=== PATIENT | male | born 1970 | race African-American/Black ===

== ENCOUNTER 2020-09-25 16:32 | Inpatient (IN) | payer OTHER ==
[2020-09-25 17:50] VITALS: BMI 28.0
[2020-09-25] MEDS ORDERED: MAGNESIUM HYDROX 2400MG/30ML ORAL SUSPENSION 30 ML CUP PO PRN (19:09)
[2020-09-25] MEDS ORDERED: ACETAMINOPHEN 325 MG TABLET (FP) PO PRN (19:09)
[2020-09-25] MEDS ORDERED: P-EPHED 60MG/TRIPROLIDI 2.5MG TABLET PO PRN (19:09)
[2020-09-25] MEDS ORDERED: guaiFENesin 200 MG/10 ML 10 ML UNIT-DOSE CUPS PO PRN (19:09)
[2020-09-25] MEDS ORDERED: MAG HYDROX/AL HYDROX/SIMETH 30 ML UNIT-DOSE CUP PO PRN (19:09)
[2020-09-25] MEDS ORDERED: MAGNESIUM CITRATE 300 ML BOTTLE PO PRN (19:09)
[2020-09-25] MEDS ORDERED: LOPERAMIDE HCL 2 MG CAPSULE PO PRN (19:09)
[2020-09-25] MEDS ORDERED: AMMONIUM LACTATE 12% LOTION 225 GM BOTTLE TP PRN (19:13)
[2020-09-25] MEDS: THIAMINE HCL 100 MG TABLET (FP) PO SCH (21:21)
[2020-09-25] MEDS: MELATONIN 5 MG TABLETS PO SCH (21:21)
[2020-09-25] MEDS: NIFEdipine E.R. 90 MG TABLET PO SCH (23:02)
[2020-09-25] MEDS: ISOSORBIDE MONONITRATE 60 MG TAB.SR.24H (FP) PO SCH (23:02)
[2020-09-25] MEDS ORDERED: PT OWN MED DRAWER 7, Y5N ONE (23:41)
[2020-09-26] MEDS: ISOSORBIDE MONONITRATE 60 MG TAB.SR.24H (FP) PO SCH (09:49)
[2020-09-26] MEDS: NIFEdipine E.R. 90 MG TABLET PO SCH (09:49)
[2020-09-26] MEDS: PRENATAL VITAMINS W/ FOLIC ACID TABLET (FP) PO SCH (09:49)
[2020-09-26 11:09] LABS: CALCIUM 8.9 mg/dL (8.5-10.1)
[2020-09-26 11:10] LABS: ALBUMIN 3.4 g/dl (3.4-5.0); BLOOD UREA NITROGEN 31.3 mg/dL (7-18)
[2020-09-26 11:11] LABS: BILIRUBIN,TOTAL 0.2 mg/dL (0.2-1); TOT PROT 6.9 g/dl (6.4-8.2)
[2020-09-26 11:12] LABS: CREATININE 2.2 mg/dL (0.55-1.3)
[2020-09-26 12:00] LABS: HEMOGLOBIN 12.5 GM/dL (11.7-16.9)
[2020-09-26 12:03] LABS: HEMATOCRIT 37.2 % (35.4-49); MCH 31.2 pg (25.7-33.7); MCHC 33.8 g/dl (32.0-35.9); MEAN CELL VOLUME 92.5 fl (80-96); MEAN PLT VOLUME 8.4 fl (7.5-11.1); PLATELET COUNT 264 K/MM3 (134-434); RBC 4.02 M/mm3 (4.00-5.60); RDW 15.1 % (11.9-15.9)
[2020-09-26] MEDS: hydrALAZINE HCL 50 MG TABLET (FP) PO SCH ×2 (14:45→21:36)
[2020-09-26] MEDS ORDERED: PT OWN MED DRAWER 7, Y5N ONE (19:26)
[2020-09-26] MEDS: MELATONIN 5 MG TABLETS PO SCH (21:36)
[2020-09-26] MEDS: THIAMINE HCL 100 MG TABLET (FP) PO SCH (21:36)
[2020-09-27] MEDS: hydrALAZINE HCL 50 MG TABLET (FP) PO SCH ×3 (06:12→22:06)
[2020-09-27] MEDS ORDERED: PT OWN MED DRAWER 7, Y5N ONE ×2 (09:02→20:35)
[2020-09-27] MEDS: ISOSORBIDE MONONITRATE 60 MG TAB.SR.24H (FP) PO SCH (09:53)
[2020-09-27] MEDS: NIFEdipine E.R. 90 MG TABLET PO SCH (09:53)
[2020-09-27] MEDS: PRENATAL VITAMINS W/ FOLIC ACID TABLET (FP) PO SCH (09:53)
[2020-09-27 10:11] LABS: PH,URINE 5.5 (5.0-8.0); URINE APPEARANCE CLEAR; URINE BILIRUBIN NEGATIVE (NEGATIVE); URINE COLOR YELLOW; URINE GLUCOSE (UA) NEGATIVE (NEGATIVE); URINE KETONE NEGATIVE (NEGATIVE); URINE LEUK ESTERASE NEGATIVE (NEGATIVE); URINE NITRITE NEGATIVE (NEGATIVE); URINE PROTEIN NEGATIVE (NEGATIVE); URINE UROBILINOGEN 0.2 mg/dL (0.2-1.0)
[2020-09-27] MEDS: MELATONIN 5 MG TABLETS PO SCH (22:06)
[2020-09-27] MEDS: THIAMINE HCL 100 MG TABLET (FP) PO SCH (22:06)
[2020-09-28] MEDS: hydrALAZINE HCL 50 MG TABLET (FP) PO SCH ×3 (07:29→21:17)
[2020-09-28] MEDS: cloNIDine-TTS 0.2 MG/24 HOURS PATCH.TDWK TD SCH (07:30)
[2020-09-28] MEDS ORDERED: PT OWN MED DRAWER 7, Y5N ONE (08:59)
[2020-09-28] MEDS: PRENATAL VITAMINS W/ FOLIC ACID TABLET (FP) PO SCH (10:06)
[2020-09-28] MEDS: NIFEdipine E.R. 90 MG TABLET PO SCH (10:06)
[2020-09-28] MEDS: ISOSORBIDE MONONITRATE 60 MG TAB.SR.24H (FP) PO SCH (10:06)
[2020-09-28] MEDS: MELATONIN 5 MG TABLETS PO SCH (21:17)
[2020-09-28] MEDS: THIAMINE HCL 100 MG TABLET (FP) PO SCH (21:17)
[2020-09-29] MEDS ORDERED: PT OWN MED DRAWER 7, Y5N ONE ×3 (05:40→21:23)
[2020-09-29 06:06] LABS: SARS-CoV-2 NAA Not Detected (Not Detected)
[2020-09-29] MEDS: hydrALAZINE HCL 50 MG TABLET (FP) PO SCH ×3 (06:12→21:21)
[2020-09-29] MEDS: PRENATAL VITAMINS W/ FOLIC ACID TABLET (FP) PO SCH (09:54)
[2020-09-29] MEDS: ISOSORBIDE MONONITRATE 60 MG TAB.SR.24H (FP) PO SCH (09:55)
[2020-09-29] MEDS: NIFEdipine E.R. 90 MG TABLET PO SCH (09:55)
[2020-09-29] MEDS: MELATONIN 5 MG TABLETS PO SCH (21:21)
[2020-09-29] MEDS: THIAMINE HCL 100 MG TABLET (FP) PO SCH (21:21)
[2020-09-30] MEDS: hydrALAZINE HCL 50 MG TABLET (FP) PO SCH ×3 (06:14→21:11)
[2020-09-30] MEDS ORDERED: PT OWN MED DRAWER 7, Y5N ONE ×3 (08:57→20:39)
[2020-09-30] MEDS: PRENATAL VITAMINS W/ FOLIC ACID TABLET (FP) PO SCH (09:53)
[2020-09-30] MEDS: ISOSORBIDE MONONITRATE 60 MG TAB.SR.24H (FP) PO SCH (09:53)
[2020-09-30] MEDS: NIFEdipine E.R. 90 MG TABLET PO SCH (09:53)
[2020-09-30] MEDS: THIAMINE HCL 100 MG TABLET (FP) PO SCH (21:11)
[2020-09-30] MEDS: MELATONIN 5 MG TABLETS PO SCH (21:11)
[2020-10-01] MEDS: hydrALAZINE HCL 50 MG TABLET (FP) PO SCH ×3 (06:26→21:17)
[2020-10-01] MEDS ORDERED: PT OWN MED DRAWER 7, Y5N ONE ×3 (08:25→19:30)
[2020-10-01] MEDS: ISOSORBIDE MONONITRATE 60 MG TAB.SR.24H (FP) PO SCH (09:45)
[2020-10-01] MEDS: NIFEdipine E.R. 90 MG TABLET PO SCH (09:45)
[2020-10-01] MEDS: PRENATAL VITAMINS W/ FOLIC ACID TABLET (FP) PO SCH (09:46)
[2020-10-01 10:45] LABS: PH,URINE 5.5 (5.0-8.0); URINE APPEARANCE CLEAR; URINE BILIRUBIN NEGATIVE (NEGATIVE); URINE COLOR YELLOW; URINE GLUCOSE (UA) NEGATIVE (NEGATIVE); URINE KETONE NEGATIVE (NEGATIVE); URINE LEUK ESTERASE NEGATIVE (NEGATIVE); URINE NITRITE NEGATIVE (NEGATIVE); URINE PROTEIN NEGATIVE (NEGATIVE); URINE UROBILINOGEN 0.2 mg/dL (0.2-1.0)
[2020-10-01] MEDS: MELATONIN 5 MG TABLETS PO SCH (21:17)
[2020-10-01] MEDS: THIAMINE HCL 100 MG TABLET (FP) PO SCH (21:17)
[2020-10-02] MEDS: hydrALAZINE HCL 50 MG TABLET (FP) PO SCH ×3 (06:16→21:32)
[2020-10-02] MEDS ORDERED: PT OWN MED DRAWER 7, Y5N ONE (08:39)
[2020-10-02] MEDS: NIFEdipine E.R. 90 MG TABLET PO SCH (09:33)
[2020-10-02] MEDS: ISOSORBIDE MONONITRATE 60 MG TAB.SR.24H (FP) PO SCH (09:33)
[2020-10-02] MEDS: PRENATAL VITAMINS W/ FOLIC ACID TABLET (FP) PO SCH (09:33)
[2020-10-02] MEDS: THIAMINE HCL 100 MG TABLET (FP) PO SCH (21:32)
[2020-10-02] MEDS: MELATONIN 5 MG TABLETS PO SCH (21:32)
[2020-10-03] MEDS: hydrALAZINE HCL 50 MG TABLET (FP) PO SCH ×3 (06:21→21:14)
[2020-10-03] MEDS: NIFEdipine E.R. 90 MG TABLET PO SCH (09:44)
[2020-10-03] MEDS: ISOSORBIDE MONONITRATE 60 MG TAB.SR.24H (FP) PO SCH (09:44)
[2020-10-03] MEDS: PRENATAL VITAMINS W/ FOLIC ACID TABLET (FP) PO SCH (09:44)
[2020-10-03] MEDS: MELATONIN 5 MG TABLETS PO SCH (21:14)
[2020-10-03] MEDS: THIAMINE HCL 100 MG TABLET (FP) PO SCH (21:14)
[2020-10-04] MEDS: hydrALAZINE HCL 50 MG TABLET (FP) PO SCH ×3 (06:44→21:30)
[2020-10-04] MEDS: NIFEdipine E.R. 90 MG TABLET PO SCH (09:52)
[2020-10-04] MEDS: ISOSORBIDE MONONITRATE 60 MG TAB.SR.24H (FP) PO SCH (09:52)
[2020-10-04] MEDS: PRENATAL VITAMINS W/ FOLIC ACID TABLET (FP) PO SCH (09:52)
[2020-10-04] MEDS: MELATONIN 5 MG TABLETS PO SCH (21:30)
[2020-10-04] MEDS: THIAMINE HCL 100 MG TABLET (FP) PO SCH (21:30)
[2020-10-05] MEDS: hydrALAZINE HCL 50 MG TABLET (FP) PO SCH ×3 (06:39→21:17)
[2020-10-05] MEDS: cloNIDine-TTS 0.2 MG/24 HOURS PATCH.TDWK TD SCH (07:07)
[2020-10-05] MEDS: ISOSORBIDE MONONITRATE 60 MG TAB.SR.24H (FP) PO SCH (09:55)
[2020-10-05] MEDS: PRENATAL VITAMINS W/ FOLIC ACID TABLET (FP) PO SCH (09:55)
[2020-10-05] MEDS: NIFEdipine E.R. 90 MG TABLET PO SCH (09:56)
[2020-10-05] MEDS: MELATONIN 5 MG TABLETS PO SCH (21:16)
[2020-10-05] MEDS: THIAMINE HCL 100 MG TABLET (FP) PO SCH (21:16)
[2020-10-06] MEDS: hydrALAZINE HCL 50 MG TABLET (FP) PO SCH ×3 (06:41→21:38)
[2020-10-06] MEDS: PRENATAL VITAMINS W/ FOLIC ACID TABLET (FP) PO SCH (09:55)
[2020-10-06] MEDS: ISOSORBIDE MONONITRATE 60 MG TAB.SR.24H (FP) PO SCH (09:55)
[2020-10-06] MEDS: NIFEdipine E.R. 90 MG TABLET PO SCH (09:55)
[2020-10-06] MEDS: THIAMINE HCL 100 MG TABLET (FP) PO SCH (21:38)
[2020-10-06] MEDS: MELATONIN 5 MG TABLETS PO SCH (21:38)
[2020-10-07] MEDS: IBUPROFEN 400 MG TABLET (FP) PO PRN (06:24)
[2020-10-07] MEDS: hydrALAZINE HCL 50 MG TABLET (FP) PO SCH ×3 (06:25→21:44)
[2020-10-07] MEDS: ISOSORBIDE MONONITRATE 60 MG TAB.SR.24H (FP) PO SCH (09:54)
[2020-10-07] MEDS: NIFEdipine E.R. 90 MG TABLET PO SCH (09:54)
[2020-10-07] MEDS: PRENATAL VITAMINS W/ FOLIC ACID TABLET (FP) PO SCH (09:54)
[2020-10-07] MEDS: MELATONIN 5 MG TABLETS PO SCH (21:44)
[2020-10-07] MEDS: THIAMINE HCL 100 MG TABLET (FP) PO SCH (21:45)
[2020-10-08] MEDS: hydrALAZINE HCL 50 MG TABLET (FP) PO SCH ×3 (06:17→21:07)
[2020-10-08] MEDS: IBUPROFEN 400 MG TABLET (FP) PO PRN (06:18)
[2020-10-08] MEDS: NIFEdipine E.R. 90 MG TABLET PO SCH (10:17)
[2020-10-08] MEDS: PRENATAL VITAMINS W/ FOLIC ACID TABLET (FP) PO SCH (10:17)
[2020-10-08] MEDS: ISOSORBIDE MONONITRATE 60 MG TAB.SR.24H (FP) PO SCH (10:17)
[2020-10-08] MEDS ORDERED: PT OWN MED DRAWER 7, Y5N ONE (18:28)
[2020-10-08] MEDS: MELATONIN 5 MG TABLETS PO SCH (21:07)
[2020-10-08] MEDS: THIAMINE HCL 100 MG TABLET (FP) PO SCH (21:07)
[2020-10-09] MEDS: hydrALAZINE HCL 50 MG TABLET (FP) PO SCH ×3 (06:34→21:29)
[2020-10-09] MEDS: PRENATAL VITAMINS W/ FOLIC ACID TABLET (FP) PO SCH (09:50)
[2020-10-09] MEDS: ISOSORBIDE MONONITRATE 60 MG TAB.SR.24H (FP) PO SCH (09:50)
[2020-10-09] MEDS: NIFEdipine E.R. 90 MG TABLET PO SCH (09:51)
[2020-10-09] MEDS: THIAMINE HCL 100 MG TABLET (FP) PO SCH (21:29)
[2020-10-09] MEDS: MELATONIN 5 MG TABLETS PO SCH (21:29)
[2020-10-10] MEDS: hydrALAZINE HCL 50 MG TABLET (FP) PO SCH ×3 (06:45→21:06)
[2020-10-10] MEDS: PRENATAL VITAMINS W/ FOLIC ACID TABLET (FP) PO SCH (09:47)
[2020-10-10] MEDS: NIFEdipine E.R. 90 MG TABLET PO SCH (09:47)
[2020-10-10] MEDS: ISOSORBIDE MONONITRATE 60 MG TAB.SR.24H (FP) PO SCH (09:47)
[2020-10-10] MEDS: THIAMINE HCL 100 MG TABLET (FP) PO SCH (21:05)
[2020-10-10] MEDS: MELATONIN 5 MG TABLETS PO SCH (21:06)
[2020-10-11] MEDS: hydrALAZINE HCL 50 MG TABLET (FP) PO SCH ×3 (06:43→21:20)
[2020-10-11] MEDS: NIFEdipine E.R. 90 MG TABLET PO SCH (09:49)
[2020-10-11] MEDS: PRENATAL VITAMINS W/ FOLIC ACID TABLET (FP) PO SCH (09:49)
[2020-10-11] MEDS: ISOSORBIDE MONONITRATE 60 MG TAB.SR.24H (FP) PO SCH (09:49)
[2020-10-11] MEDS: THIAMINE HCL 100 MG TABLET (FP) PO SCH (21:20)
[2020-10-11] MEDS: MELATONIN 5 MG TABLETS PO SCH (21:20)
[2020-10-12] MEDS: hydrALAZINE HCL 50 MG TABLET (FP) PO SCH ×3 (06:26→21:03)
[2020-10-12] MEDS: cloNIDine-TTS 0.2 MG/24 HOURS PATCH.TDWK TD SCH (07:55)
[2020-10-12] MEDS: NIFEdipine E.R. 90 MG TABLET PO SCH (09:55)
[2020-10-12] MEDS: ISOSORBIDE MONONITRATE 60 MG TAB.SR.24H (FP) PO SCH (09:55)
[2020-10-12] MEDS: PRENATAL VITAMINS W/ FOLIC ACID TABLET (FP) PO SCH (09:55)
[2020-10-12] MEDS: THIAMINE HCL 100 MG TABLET (FP) PO SCH (21:05)
[2020-10-12] MEDS: MELATONIN 5 MG TABLETS PO SCH (21:05)
[2020-10-13] MEDS: hydrALAZINE HCL 50 MG TABLET (FP) PO SCH ×3 (06:20→21:36)
[2020-10-13] MEDS ORDERED: cloNIDine-TTS 0.3 MG /24 HRS PATCH.TDWK TD SCH ×2 (10:00)
[2020-10-13] MEDS: ISOSORBIDE MONONITRATE 60 MG TAB.SR.24H (FP) PO SCH (10:58)
[2020-10-13] MEDS: PRENATAL VITAMINS W/ FOLIC ACID TABLET (FP) PO SCH (10:58)
[2020-10-13] MEDS: NIFEdipine E.R. 90 MG TABLET PO SCH (10:58)
[2020-10-13 11:44] LABS: CALCIUM 9.1 mg/dL (8.5-10.1)
[2020-10-13 11:45] LABS: ALBUMIN 4.3 g/dl (3.4-5.0); BLOOD UREA NITROGEN 33.8 mg/dL (7-18)
[2020-10-13 11:48] LABS: CREATININE 2.1 mg/dL (0.55-1.3)
[2020-10-13 11:49] LABS: BILIRUBIN,TOTAL 0.5 mg/dL (0.2-1); TOT PROT 8.1 g/dl (6.4-8.2)
[2020-10-13] MEDS: THIAMINE HCL 100 MG TABLET (FP) PO SCH (21:36)
[2020-10-13] MEDS: MELATONIN 5 MG TABLETS PO SCH (21:36)
[2020-10-13 23:29] LABS: URINE APPEARANCE CLEAR; URINE BILIRUBIN NEGATIVE (NEGATIVE); URINE COLOR YELLOW; URINE GLUCOSE (UA) NEGATIVE (NEGATIVE); URINE KETONE NEGATIVE (NEGATIVE); URINE LEUK ESTERASE NEGATIVE (NEGATIVE); URINE NITRITE NEGATIVE (NEGATIVE); URINE PROTEIN NEGATIVE (NEGATIVE); URINE UROBILINOGEN 0.2 mg/dL (0.2-1.0)
[2020-10-14] MEDS: hydrALAZINE HCL 50 MG TABLET (FP) PO SCH ×3 (06:10→21:02)
[2020-10-14] MEDS: PRENATAL VITAMINS W/ FOLIC ACID TABLET (FP) PO SCH (09:59)
[2020-10-14] MEDS: NIFEdipine E.R. 90 MG TABLET PO SCH (09:59)
[2020-10-14] MEDS: ISOSORBIDE MONONITRATE 60 MG TAB.SR.24H (FP) PO SCH (09:59)
[2020-10-14] MEDS: MELATONIN 5 MG TABLETS PO SCH (21:02)
[2020-10-14] MEDS: THIAMINE HCL 100 MG TABLET (FP) PO SCH (21:02)
[2020-10-15] MEDS: hydrALAZINE HCL 50 MG TABLET (FP) PO SCH ×3 (06:42→21:30)
[2020-10-15] MEDS: PRENATAL VITAMINS W/ FOLIC ACID TABLET (FP) PO SCH (09:24)
[2020-10-15] MEDS: NIFEdipine E.R. 90 MG TABLET PO SCH (09:24)
[2020-10-15] MEDS: ISOSORBIDE MONONITRATE 60 MG TAB.SR.24H (FP) PO SCH (09:24)
[2020-10-15] MEDS: MELATONIN 5 MG TABLETS PO SCH (21:30)
[2020-10-15] MEDS: THIAMINE HCL 100 MG TABLET (FP) PO SCH (21:30)
[2020-10-16] MEDS: hydrALAZINE HCL 50 MG TABLET (FP) PO SCH ×3 (06:05→21:29)
[2020-10-16] MEDS: ISOSORBIDE MONONITRATE 60 MG TAB.SR.24H (FP) PO SCH (10:29)
[2020-10-16] MEDS: NIFEdipine E.R. 90 MG TABLET PO SCH (10:29)
[2020-10-16] MEDS: PRENATAL VITAMINS W/ FOLIC ACID TABLET (FP) PO SCH (10:29)
[2020-10-16] MEDS: MELATONIN 5 MG TABLETS PO SCH (21:29)
[2020-10-16] MEDS: THIAMINE HCL 100 MG TABLET (FP) PO SCH (21:29)
[2020-10-17] MEDS: hydrALAZINE HCL 50 MG TABLET (FP) PO SCH ×3 (07:06→21:42)
[2020-10-17] MEDS: PRENATAL VITAMINS W/ FOLIC ACID TABLET (FP) PO SCH (09:42)
[2020-10-17] MEDS: NIFEdipine E.R. 90 MG TABLET PO SCH (09:43)
[2020-10-17] MEDS: ISOSORBIDE MONONITRATE 60 MG TAB.SR.24H (FP) PO SCH (09:43)
[2020-10-17] MEDS: MELATONIN 5 MG TABLETS PO SCH (21:42)
[2020-10-17] MEDS: THIAMINE HCL 100 MG TABLET (FP) PO SCH (21:42)
[2020-10-18 06:02] VITALS: BP 153/93; PULSE 73; TEMP 97.5
[2020-10-18] MEDS: hydrALAZINE HCL 50 MG TABLET (FP) PO SCH (06:04)
[2020-10-18] MEDS ORDERED: COVID-19 VAC,AD26(JANSSEN)/PF 0.5 ML IM ONE (09:00)
== END 2020-10-18 09:55 | disposition home or self-care (01) | DRG 772 ==
LOC: YASAS 16:32 → Y3E 19:29 → Y3W 10-02 14:15
PROVIDERS: ADMIT Allergy & Immunology; ATTEND Allergy & Immunology
PROC: HZ42ZZZ Group Counseling for Substance Abuse Treatment, Cognitive-Behavioral (ICD-10-PCS; principal; 2020-09-25)
DX: F10.20 Alcohol dependence, uncomplicated (principal); F14.20 Cocaine dependence, uncomplicated; I15.1 Hypertension secondary to other renal disorders; I12.9 Hypertensive chronic kidney disease with stage 1 through stage 4 chronic kidney disease, or unspecified chronic kidney disease; N18.4 Chronic kidney disease, stage 4 (severe); Z87.891 Personal history of nicotine dependence; Z56.0 Unemployment, unspecified; Z59.0 Homelessness
CPT/HCPCS: 0031A; 36415; 80053; 81003; 85027; 86780; 91303; C9803; U0003; U0005